=== PATIENT | female | born 1950 | race Caucasian/White ===

== ENCOUNTER 2016-09-02 16:31 | Inpatient (IN) | payer OTHER ==
[~2016-09-02] VITALS: Ht 158.8 cm; Wt 64.4 kg
[~2016-09-02 16:31] MED LIST: AZIT1PAC7 PO; IBUP-1060 PO; LISI1TAB5 PO; METO50TA2 PO; OXYC-323 PO; SIMV40TA3 PO; TIZA4TAB PO
[2016-09-02 17:00] VITALS: BP_SYST 140; BP_DIAS 83; BP_DIAS 85
[2016-09-02] MEDS ORDERED: ACETAMINOPHEN 325 MG TABLET. PO ONE (17:45)
[2016-09-02] MEDS ORDERED: IBUPROFEN 600 MG TABLET. PO ONE (17:45)
--- NOTE | 2016-09-02 18:43 | RAD ---
PROCEDURE CT head without contrast. HISTORY Increasing right-sided weakness for [address] head was obtained. One or more of the following individualized dose reduction techniques were utilized for this exam: 1. Automated exposure control. 2. Adjustment of the mA and/or kV according to patient's size. 3. Use of iterative reconstruction technique. COMPARISON June 25, 2016. FINDINGS Large stable infarct involving the left frontal lobe and left basal ganglia and left insula is again noted. This also likely extends into the thalamus. It has similar appearance to prior. No new infarct is identified. There is no acute intracranial hemorrhage or extra-axial fluid collection. There is brain parenchymal volume loss with ex vacuo dilation of the left lateral ventricle. There is no mass effect or midline shift. There are vascular calcifications. The paranasal sinuses and mastoid air cells are clear. IMPRESSION Stable large infarct mainly involving the frontal lobe and basal ganglia. No evidence of an acute infarct. Electronically signed by: Ruben Genao MD (Sep 02, 2016 18:41:45)
[2016-09-02 19:00] VITALS: BP 105/58
[2016-09-02] MEDS ORDERED: IBUPROFEN 400 MG TABLET. PO PRN (20:45)
[2016-09-02] MEDS ORDERED: ACETAMINOPHEN 325 MG TABLET. PO PRN (20:45)
[2016-09-02] MEDS: METOPROLOL TART IMMED RELEASE 50 MG TABLET PO SCH (21:00)
[2016-09-02] MEDS ORDERED: SIMVASTATIN 40 MG TABLET. PO SCH (21:00)
[2016-09-02] MEDS ORDERED: tiZANidine 4 MG TABLET. PO SCH ×2 (21:00→21:15)
[2016-09-02 21:48] LABS: ALBUMIN 3.3 g/dL (3.4-5.0); ALBUMIN/GLOBULIN RATIO 1.1 (1.0-1.7); CALCIUM 8.8 mg/dL (8.5-10.1); CREATININE 2.1 mg/dL (0.6-1.0); GFR 23.4; POTASSIUM 3.7 mmol/L (3.5-5.1); TOTAL BILIRUBIN 0.5 mg/dL (0.2-1.0); TOTAL PROTEIN 6.3 g/dL (6.4-8.2)
[2016-09-02 23:00] VITALS: BP 128/55
--- NOTE | 2016-09-03 02:00 | HP ---
ADMIT DATE: 09/02/2016 HISTORY OF PRESENT ILLNESS: This is a 66-year-old white female who came into the office complaining of weakness of the right arm. She has sustained a stroke in the right arm. She has had difficulty with her right arm, but she believes she was able to do more. She was able to pickle pumper an object. She is now not able to pickle pumper an object. When I asked her to pickle pumper a pen, her whole hand spread across the pen and she could not bend her fingers to pick it up. She does not feed herself with her right arm. She feeds herself with her left arm. She continues to drive with her left hand. She signs with her left hand. Thus, she does not use her right arm for any useful purpose, Since the stroke, she thinks her right arm is much weaker than before. She also has had dysarthria. She feels it is a little worse. I could not discern that. She has had weakness of her right leg, but she has always been able to walk normal. She does not use any assistive device after her rehab in [place] after her stroke in 2010. She even was working at [employer]. 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 She is really concerned about this increased weakness in the right arm. She was concerned that she has had another stroke and is very worried about it. She lives alone at home. Her family lives in [place]. She had been to [place] for a few days in June. Since then, she has come home and lives alone and does all her grocery shopping by herself. She does not work anymore. She drives to various places on her own. She drove up to the office. She did not think there was anything unusual with that because she uses her left arm. PAST MEDICAL HISTORY: Very significant. In 1991, she underwent a splenectomy for hereditary spherocytosis. Her mother had also had a splenectomy. In 2001, she sustained an acute inferior wall myocardial infarction and had a stent placed. 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 Thereafter, she underwent open heart surgery. I do not believe she went back to work after the [facility] She was well enough to do so, but since she continued to smoke at that time, the [employer] wanted her to have her evaluated to be able to work under the cabin pressures whilein flight. She underwent ABG. The pO2 was 79 at sea level. [employer] believed that if she had a pO2 of 79 at sea level, it would probably drop to a pO2 of 50 at the cabin pressure while in flight. She thus could not go back to work. I saw her in the office on 08/13/2010. She complained of having episodes of dysphasia. I wanted her to have carotid Dopplers. She did not have insurance at that time and she did not want to spend money doing it. Unfortunately, on 09/04/2010, she developed right-sided stroke. This occurred at night. She was living with her niece. She woke up and, wandered out. Her niece found her and found that she had had a stroke. The ambulance was called and she was taken to [facility]. There, they found that there was a occlusion of the middle cerebral artery. There was also a total occlusion of the left internal carotid artery. An experimental laser treatment was carried out. This is because she was out of the window for thrombolysis. It had no affect and she continued to have the deficits as she had. She then went to rehabilitation. The deficits were severe dysarthria, and her dysarthria improved with speech therapy. Severe weakness of the right hand, which did not improve much. Weakness of the right leg, which improved significantly to the point that she was able to walk with no assistance. She then saw a neurologist, Dr. Rory Cha in 08/2010 about 3 months after the stroke. At that time, she had a seizure. She felt that her right arm had become weaker yet. Dr. Cha placed her on Plavix and I do not know when she discontinued it. He also placed her on Keppra, but then when he saw her in November , he took her off the Keppra. I believe she had one other visit with him in 10/2010 for again increased weakness of the right arm and Dr. Cha at that time thought it could be due to depression and talked to her about antidepressants, but there is no record that she was placed on one. She did see me in 2011 for chest pain. A cardiac catheterization was performed on 03/09/2012. The MANN to the LAD was patent. The MANN was a very small vessel. When it was engaged, the MANN was totally occluded and there was no flow and she went into V-fib and was shocked out of it. The SVG to the diagonal branch was patent. SVG to the right coronary artery and the posterior descending branch was patent. At that time, she underwent carotid Doppler The left internal carotid artery was totally occluded. The right internal carotid artery had a 50-70% obstruction. She was seen in consultation by Dr. Guzman who felt at that time that the risks of doing the surgery outweighed the benefits, but that was back in 2011. She had a hospitalization in 06/2016. The right internal carotid artery again showed a 50-69% obstruction. She was seen by Dr. Garcia for headaches. He placed her on tizanidine. I am not sure whether the patient is still taking it. She said that she had tried to get in touch with Dr. Garcia but dis not have his number. She did not call the office either. Her last myocardial perfusion study was done in 06/2016 when there was a mixed perfusion defect in the lateral wall. She had no symptoms at that time and we did not subject her to further investigations. She had stopped taking her statins. Her HDL cholesterol has been high all along. Unfortunately, she had no insurance, but since she turned 63, she does have Medicare. In 06/2016, her LDL cholesterol was elevated to 158, which was still better than 200, which was some years ago. She continues to smoke at the present time. MEDICATIONS: Her present medications are listed as: 1. Aspirin 81 mg a day. 2. Metoprolol tartrate 50 mg 3 times a day. 3. Lisinopril/hydrochlorothiazide 20/12.5 once a day. 4. Pantoprazole 20 mg a day. 5. Ibuprofen 200 mg 4 times a day for headaches. 6. Lipitor 20 mg a day. 7. She was not at all sure whether she is taking the tizanidine or not. PAST MEDICAL HISTORY: 1. Splenectomy. 2. Open heart surgery. 3. Permanent pacemaker. The pacemaker has been checked recently. FAMILY HISTORY: Her mother had coronary artery disease. She also had had hereditary spherocytosis and had had splenectomy done. She had diabetes. PHYSICAL EXAMINATION: GENERAL: She was alert, awake. Her speech was very dysarthric. She had difficulty in getting certain words out, but could easily recognize the right word that she wanted to say. She was very slow. I did not see a difference in her speech as I have seen her before. VITAL SIGNS: She was afebrile. The blood pressure was 124/88, oxygen saturation was 97% on room air. The weight was 142 pounds, which has been stable. LUNGS: Clear. HEART: The heart sounds are normal with no murmur or gallop. ABDOMEN: Soft. EXTREMITIES: There is no edema of the legs. NEUROLOGIC: She had a right facial droop. She had weakness of the right arm and right elbow. 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 Her hand would simply spread out and she would be unable to bend her fingers and pickle pumper an object. There was decreased strength in the right leg, She would be able to get up and walk with a normal gait. IMPRESSION AND PLAN: 1. Right-sided cerebrovascular accident in 2010 with the patient stating that she has had further weakness of her right arm and is concerned that she might have had another stroke. Plavix that was initiated by a neurologist in 2010 has not been continued by her. 2. Severe headaches, for the last 1 year, but she says it has been worse in the last 2 weeks. 3. Hypertension, under control. 4. Dyslipidemia. 5. Coronary artery disease with no symptoms of chest pain with limited activity. 6. Dyslipidemia. 7. Hereditary spherocytosis status post splenectomy. 8. Carotid vascular disease with total occlusion of the left internal carotid artery and 50-70% obstruction of the right internal carotid artery, no symptoms on the left side. 9.Chronic kidney disease This patient lives alone and provides her own transportation. She has nobody to drive her around. She came in with 4 days of increased weakness of the right arm and 2 weeks of headaches. She said she was unable to contact her neurologist. She needs a CT scan and consultation with a neurologist. She also needs to have her right carotid artery followed for the moderate obstruction of 50-70% since that is the only artery that is patent and the left internal carotid artery totally occluded. She was thus being hospitalized for immediate attention in this patient who is noncompliant and has limited access to care. Also, I would like Dr. Garcia's opinion as to whether she should go back on the Plavix. I am not sure of her financial situation at this time. Dr. Cha, her previous neurologist, had recommended that she be placed on Plavix and somewhere along the line, she has discontinued it. Also, I would like Dr. Garcia's advice regarding treatment of her headache. She already has renal dysfunction with a creatinine of 1.67 when checked last and continued use of high dose of ibuprofen would only worsen her kidney failure. DOMENICA COURTNEY MD DR: BRITTNEY/kaveh JOB#: [id number] / [id number] GRACIE
[2016-09-03 03:00] VITALS: BP 108/63
[2016-09-03 05:12] LABS: BASO # 0.1 x10^3/uL (0.0-0.2); BASO % 1 % (0-3); EOS % 9 % (0-3); HEMATOCRIT 36.6 % (36.0-47.0); HEMOGLOBIN 13.4 g/dL (12.0-15.5); LYMPH # 6.5 x10^3/uL (1.0-4.8); LYMPH % 60 % (24-48); MEAN CORPUSCULAR HEMOGLOBIN 34 pg (25-35); MEAN CORPUSCULAR HGB CONC 37 g/dL (31-37); MEAN CORPUSCULAR VOLUME 93 fL (79-100); MONO % 8 % (0-9); NEUT % 22 % (31-73); PLATELET COUNT 216 x10^3/uL (140-400); RED BLOOD COUNT 3.94 x10^6/uL (3.50-5.40); RED CELL DISTRIBUTION WIDTH 14.5 % (11.5-14.5)
[2016-09-03 05:56] LABS: CHOLESTEROL/HDL RATIO 7.6
[2016-09-03 06:55] VITALS: BP 117/65
--- NOTE | 2016-09-03 07:44 | EKG ---
[facility] [address] [place] [address] Test Date: 2016-09-03 Test Time: 07:42:40 Pat Name: DORYS GURROLA Department: Room: 648 1 Gender: F Head Paper Tester: MICHELLE : 1950 Requested By: DOMENICA COURTNEY Order Number: [id number] Reading MD: Measurements Intervals [place] Rate: 61 P: 0 VA: 216 QRS: 45 QRSD: 74 T: 21 QT: 396 QTc: 400 Interpretive Statements SINUS RHYTHM NO SPECIFIC ECG ABNORMALITIES RI6.01 Compared to ECG 03/08/2012 03:30:53 No significant changes
[2016-09-03] MEDS ORDERED: ASPIRIN 81 MG TAB.CHEW PO SCH ×2 (08:00→09:00)
--- NOTE | 2016-09-03 08:44 | RAD ---
Indication right arm weakness. Speech difficulty. Hypertension. Grayscale color Doppler and spectral imaging was performed. Examination was targeted to the carotid bifurcations. Note is made of a previous examination June 24, 2016. On the right there is diffuse intimal thickening and some diffuse calcification. The common carotid waveform and velocities are somewhat elevated suggesting possible stenosis in the common carotid. There is elevated peak systolic velocity in the external carotid consistent with incidental stenosis associated with this vessel. There are elevated peak systolic and diastolic velocities in the internal carotid. These values are approximately 240 and 63 cm/s respectively. Findings are compatible with stenosis in the 70% range. The vertebral is patent and demonstrates normal directional flow. On the left there is also intimal thickening and diffuse plaquing. The common carotid waveform and velocities are normal. There is an elevated peak systolic velocity in the external carotid consistent with incidental stenosis in this vessel. Similar to the previous exam no flow is seen in the internal carotid just after the bifurcation. The vertebral is patent and demonstrates normal directional flow. IMPRESSION: Moderately extensive intimal thickening and plaquing involving both carotid bifurcations. No flow seen in the left internal carotid, just after the bifurcation, similar to the previous exam suggesting occlusion. Hemodynamically significant stenosis involving the right internal carotid estimated at approximately 70%. Note: Stenosis calculations for CT, MR and conventional angiography are based upon determination of the distal ICA diameter in accordance with the NASCET methodology. Stenosis calculations for doppler studies are derived from validated velocity criteria which are known to correlate with NASCET methodology of determining stenosis.
[2016-09-03] MEDS ORDERED: LISINOPRIL 20 MG TABLET PO SCH (09:00)
[2016-09-03] MEDS ORDERED: HYDROCHLOROTHIAZIDE 12.5 MG CAPSULE. PO SCH (09:00)
--- NOTE | 2016-09-03 09:00 | RAD ---
Indication headaches. Right arm pain. Possible CVA. Protocol study. PA and lateral views of the chest were obtained. Comparison is made to a study June 23, 2016. Postoperative changes are noted as well as a bipolar cardiac pacing device. There is no congestive heart failure. A consolidated pneumonia is not seen. There is slight blunting of the left costophrenic angle likely reflecting scar. Significant pleural fluid in either lung is not seen. IMPRESSION: No acute or focal process seen in the chest
[2016-09-03] MEDS: METOPROLOL TART IMMED RELEASE 50 MG TABLET PO SCH ×2 (09:05→13:32)
[2016-09-03 09:29] LABS: % BASOS 1 % (0-3); % EOS 8 % (0-5)
[2016-09-03 09:30] LABS: PLT ESTIMATE ADEQUATE (ADEQUATE)
[2016-09-03 10:52] VITALS: BP 108/63
--- NOTE | 2016-09-03 11:57 | PDOC2 ---
NEUROLOGY CONSULT Date of Admission Date of Admission DATE: 09/03/16 TIME: 11:45 Reason for Consult Reason for Consult: Increased right arm weakness following stroke Referring Physician Referring Physician: Dr. Zhang Source Source: Chart review, Patient History of Present Illness History of Present Illness The patient is a 66-year-old right-handed female who had a stroke 6 years ago treated at [facility]. She had a aphasia and right hip repair assist but made a very good recovery, even able to work, drive, and take care of things on her own, living alone. Over the last few weeks she has noticed increased right arm weakness. Dr. Zhang decided that she should be admitted. The patient does have a history of seizure, but none in the past 5 years. There is no history of head injury. She was diagnosed with left carotid occlusion at the time of her stroke. I just saw her 2 months ago for headaches at which time CT scan of the head, carotid Dopplers, and sedimentation rate were negative. I started her on ties and a need for tension headaches but she does not recall if it helped. She denies headaches today. Past Medical History Cardiovascular: CAD, Hyperlipidemia Heme/Onc: Other (hereditary spherocytosis) Past Surgical History Past Surgical History: Pacemaker, CABG, Other (splenectomy for the spherocytosis, coronary stent) Family History Family History: Other (hereditary spherocytosis) Social History Social History Single, smokes one fourth pack of cigarettes per day, rare alcohol, lives on her own Current Medications Current Medications Current Medications Acetaminophen (Tylenol) 650 mg 1X ONCE PO Last administered on 09/02/16 18:02 ; Start 09/02/16 at 17:45; Stop 09/02/16 at 17:49; Status DC Ibuprofen (Motrin) 600 mg 1X ONCE PO Last administered on 09/02/16 18:02; Start 09/02/16 at 17:45; Stop 09/02/16 at 17:49; Status DC Metoprolol Tartrate (Lopressor) 50 mg TID PO Last administered on 09/03/16 09: 05; Start 09/02/16 at 21:00 Simvastatin (Zocor) 40 mg QHS PO ; Start 09/02/16 at 21:00 Lisinopril (Prinivil) 20 mg DAILY PO Last administered on 09/03/16 09:04; Start 09/03/16 at 09:00 Tizanidine HCl (Zanaflex) 4 mg QHS PO ; Start 09/02/16 at 21:00; Stop 09/02/16 at 21:15; Status DC Hydrochlorothiazide (Microzide) 12.5 mg DAILY PO Last administered on 09:05; Start 09/03/16 at 09:00 Aspirin (Children'S Aspirin) 81 mg DAILYWBKFT PO ; Start 09/03/16 at 08:00; Stop 09/03/16 at 08:59; Status DC Acetaminophen (Tylenol) 650 mg PRN Q6HRS PRN PO MILD PAIN / TEMP Last administered on 09/03/16 11:14; Start 09/02/16 at 20:45 Ibuprofen (Motrin) 400 mg PRN Q6HRS PRN PO INFLAMMATION; Start 09/02/16 at 20: 45 Tizanidine HCl (Zanaflex) 2 mg QHS PO ; Start 09/02/16 at 21:15 Aspirin (Children'S Aspirin) 324 mg DAILYWBKFT PO Last administered on 09:04; Start 09/03/16 at 09:00 Active Scripts Active Simvastatin 40 Mg Tablet 1 Tab PO QHS Tizanidine Hcl 4 Mg Tablet 0.5 Tab PO QHS Reported Lisinopril-Hctz 20-12.5 Mg Tab (Lisinopril/Hydrochlorothiazide) 1 Each Tablet 1 Tab PO DAILY Metoprolol Tartrate 50 Mg Tablet 50 Mg PO TID Allergies Allergies: Coded Allergies: Penicillins (Verified Allergy, Intermediate, 06/23/16) Sulfa (Sulfonamide Antibiotics) (Verified Allergy, Intermediate, 06/23/16) codeine (Verified Allergy, Intermediate, 06/23/16) erythromycin base (Verified Allergy, Unknown, 09/02/16) ROS Review of System Patient denies fevers, chills, weight loss, dyspnea, angina, abdominal pain, change in bowels, or dysuria. 14 point review of systems is negative. Physical Exam Physical Examination PHYSICAL EXAMINATION: Vital signs: see above. General appearance is normal and in no acute distress. HEENT: Normocephalic and nontraumatic. Eyes, nose, ears, and throat are unremarkable. Neck is supple. No lymphadenopathy. No bruits are heard over the carotid artery. No crepitus. NEUROLOGIC: Mental Status Examination: Alert. Oriented to time, place, and person. Mild expressive aphasia. Pupils are equal round and reactive to light and accommodation. Funduscopic exam: No papilledema. Extraocular movements are intact. Visual field exam shows no defect on the direct confrontation. Mild right central facial weakness. Uvula in the midline and the soft palate elevated symmetrically. No deviation of the tongue to any direction. Gross hearing is normal. Shoulder shrug normal. Muscle tone is normal. Muscle strength is 4/5 on the right, 5/5 on the left. Deep tendon reflexes are 2+ all around. Plantar reflex is with flexion response bilaterally. [id number]-[id number] test performance is accurate. Alternative movements are accurate. Gait not tested. Sensory exam shows no deficits. No cerebellar signs are elicited. Vitals VITALS Vital Signs Date Time Temp Pulse Resp B/P Pulse Ox O2 Delivery O2 Flow Rate FiO2 09/03/16 10:52 97.7 62 17 108/63 96 Room Air 97.7 Labs Labs Laboratory Tests Test 09/02/16 21:25 09/03/16 04:25 Sodium Level 140mmol/L (136-145) Potassium Level 3.7mmol/L (3.5-5.1) Chloride Level 105mmol/L (98-107) Carbon Dioxide Level 26mmol/L (21-32) Anion Gap 9 (6-14) Blood Urea Nitrogen 35mg/dL (7-20) Creatinine 2.1mg/dL (0.6-1.0) Estimated GFR (Cockcroft-Gault) 23.4 BUN/Creatinine Ratio 17 (6-20) Glucose Level 93mg/dL (70-99) Calcium Level 8.8mg/dL (8.5-10.1) Total Bilirubin 0.5mg/dL (0.2-1.0) Aspartate Amino Transf (AST/SGOT) 14U/L (15-37) Alanine Aminotransferase (ALT/SGPT) 16U/L (14-59) Alkaline Phosphatase 51U/L (46-116) Total Protein 6.3g/dL (6.4-8.2) Albumin 3.3g/dL (3.4-5.0) Albumin/Globulin Ratio 1.1 (1.0-1.7) White Blood Count 11.0x10^3/uL (4.0-11.0) Red Blood Count 3.94x10^6/uL (3.50-5.40) Hemoglobin 13.4g/dL (12.0-15.5) Hematocrit 36.6% (36.0-47.0) Mean Corpuscular Volume 93fL (79-100) Mean Corpuscular Hemoglobin 34pg (25-35) Mean Corpuscular Hemoglobin Concent 37g/dL (31-37) Red Cell Distribution Width 14.5% (11.5-14.5) Platelet Count 216x10^3/uL (140-400) Neutrophils (%) (Auto) 22% (31-73) Lymphocytes (%) (Auto) 60% (24-48) Monocytes (%) (Auto) 8% (0-9) Eosinophils (%) (Auto) 9% (0-3) Basophils (%) (Auto) 1% (0-3) Neutrophils # (Auto) 2.4x10^3uL (1.8-7.7) Lymphocytes # (Auto) 6.5x10^3/uL (1.0-4.8) Monocytes # (Auto) 0.9x10^3/uL (0.0-1.1) Eosinophils # (Auto) 1.0x10^3/uL (0.0-0.7) Basophils # (Auto) 0.1x10^3/uL (0.0-0.2) Segmented Neutrophils % 26% (35-66) Band Neutrophils % 1% (0-9) Lymphocytes % 51% (24-48) Atypical Lymphocytes % (Manual) 6% (0-0) Monocytes % 7% (0-10) Eosinophils % 8% (0-5) Basophils % 1% (0-3) Platelet Estimate Adequate (ADEQUATE) Erythrocyte Sedimentation Rate 10 (0-25) Triglycerides Level 236mg/dL (0-150) Cholesterol Level 265mg/dL (0-200) LDL Cholesterol, Calculated 183mg/dL (0-100) VLDL Cholesterol, Calculated 47mg/dL (0-40) HDL Cholesterol 35mg/dL (40-60) Cholesterol/HDL Ratio 7.6 Thyroid Stimulating Hormone (TSH) 1.915uIU/mL (0.358-3.74) Laboratory Tests Test 09/02/16 21:25 09/03/16 04:25 Sodium Level 140mmol/L (136-145) Potassium Level 3.7mmol/L (3.5-5.1) Chloride Level 105mmol/L (98-107) Carbon Dioxide Level 26mmol/L (21-32) Anion Gap 9 (6-14) Blood Urea Nitrogen 35mg/dL (7-20) Creatinine 2.1mg/dL (0.6-1.0) Estimated GFR (Cockcroft-Gault) 23.4 BUN/Creatinine Ratio 17 (6-20) Glucose Level 93mg/dL (70-99) Calcium Level 8.8mg/dL (8.5-10.1) Total Bilirubin 0.5mg/dL (0.2-1.0) Aspartate Amino Transf (AST/SGOT) 14U/L (15-37) Alanine Aminotransferase (ALT/SGPT) 16U/L (14-59) Alkaline Phosphatase 51U/L (46-116) Total Protein 6.3g/dL (6.4-8.2) Albumin 3.3g/dL (3.4-5.0) Albumin/Globulin Ratio 1.1 (1.0-1.7) White Blood Count 11.0x10^3/uL (4.0-11.0) Red Blood Count 3.94x10^6/uL (3.50-5.40) Hemoglobin 13.4g/dL (12.0-15.5) Hematocrit 36.6% (36.0-47.0) Mean Corpuscular Volume 93fL (79-100) Mean Corpuscular Hemoglobin 34pg (25-35) Mean Corpuscular Hemoglobin Concent 37g/dL (31-37) Red Cell Distribution Width 14.5% (11.5-14.5) Platelet Count 216x10^3/uL (140-400) Neutrophils (%) (Auto) 22% (31-73) Lymphocytes (%) (Auto) 60% (24-48) Monocytes (%) (Auto) 8% (0-9) Eosinophils (%) (Auto) 9% (0-3) Basophils (%) (Auto) 1% (0-3) Neutrophils # (Auto) 2.4x10^3uL (1.8-7.7) Lymphocytes # (Auto) 6.5x10^3/uL (1.0-4.8) Monocytes # (Auto) 0.9x10^3/uL (0.0-1.1) Eosinophils # (Auto) 1.0x10^3/uL (0.0-0.7) Basophils # (Auto) 0.1x10^3/uL (0.0-0.2) Segmented Neutrophils % 26% (35-66) Band Neutrophils % 1% (0-9) Lymphocytes % 51% (24-48) Atypical Lymphocytes % (Manual) 6% (0-0) Monocytes % 7% (0-10) Eosinophils % 8% (0-5) Basophils % 1% (0-3) Platelet Estimate Adequate (ADEQUATE) Erythrocyte Sedimentation Rate 10 (0-25) Triglycerides Level 236mg/dL (0-150) Cholesterol Level 265mg/dL (0-200) LDL Cholesterol, Calculated 183mg/dL (0-100) VLDL Cholesterol, Calculated 47mg/dL (0-40) HDL Cholesterol 35mg/dL (40-60) Cholesterol/HDL Ratio 7.6 Thyroid Stimulating Hormone (TSH) 1.915uIU/mL (0.358-3.74) Images Images Carotids: Moderately extensive intimal thickening and plaquing involving both carotid bifurcations. No flow seen in the left internal carotid, just after the bifurcation, similar to the previous exam suggesting occlusion. Hemodynamically significant stenosis involving the right internal carotid estimated at approximately 70%. CT head: Large stable infarct involving the left frontal lobe and left basal ganglia and left insula is again noted. This also likely extends into the thalamus. It has similar appearance to prior. No new infarct is identified. There is no acute intracranial hemorrhage or extra-axial fluid collection. There is brain parenchymal volume loss with ex vacuo dilation of the left lateral ventricle. There is no mass effect or midline shift. There are vascular calcifications. The paranasal sinuses and mastoid air cells are clear. IMPRESSION Stable large infarct mainly involving the frontal lobe and basal ganglia. No evidence of an acute infarct. Assessment/Plan Assessment/Plan Impression: Right hemiparesis and aphasia following stroke, no evidence of progression since the scan of just 2 months ago. I do not detect any difference on exam Likewise, the patient had carotid Dopplers just 2 months ago repeated again this time. 2 months ago the radiologist called 50-69% right carotid stenosis, now he is calling 70% stenosis. The left carotid is occluded chronically. Tension headaches, not a problem today. Recommendations: Vascular surgery opinion especially in light of the fact that the left carotid is occluded Rehabilitation modalities Continue aspirin and statin Okay for discharge in the next 24 hours from the neurological perspective. Follow-up with neurology as needed. Thank you for letting me help with the patient's care. SALVADOR OSMAN MD Sep 03, 2016 11:57
[2016-09-03] MEDS ORDERED: FLUOXETINE HCL 20 MG CAPSULE PO SCH (12:00)
[2016-09-03 15:00] VITALS: BP 100/59
--- NOTE | 2016-09-03 17:29 | PDOC2 ---
CONSULT Date of Consult Date of Consult DATE: 09/03/16 TIME: 17:06 Reason for Consult Reason for Consult: Right carotid stenosis, asymptomatic with left internal carotid occlusion. Referring Physician Referring Physician: Dr. Dexter Identification/Chief Complaint Chief Complaint Right arm weakness Source Source: Patient History of Present Illness Reason for Visit: Ms. Mckinnon is a 66 y/o female with HTN, HLD, CAD s/p CABG, Pacemaker s/p right-sided (with residual RUE weakness) stroke 6 years ago w/ L ICA occlusion that was admitted to [facility] for evaluation of right arm weakness. She states that the right arm has been weaker over the past several weeks, but she did have residual weakness after of the arm after the stroke. She denies any chest pain. She denies any claudication, rest pain, or ulcers of the legs. Past Medical History Cardiovascular: CAD, Hyperlipidemia Pulmonary: COPD CENTRAL NERVOUS SYSTEM: CVA GI: GERD Heme/Onc: Other (hereditary spherocytosis) Past Surgical History Past Surgical History: Pacemaker, CABG, Other (splenectomy for the spherocytosis, coronary stent) Current Problem List Problem List Problems Medical Problems: (1) Carotid artery occlusion Status: Acute Current Medications Current Medications Current Medications Acetaminophen (Tylenol) 650 mg 1X ONCE PO Last administered on 09/02/16 18:02 ; Start 09/02/16 at 17:45; Stop 09/02/16 at 17:49; Status DC Ibuprofen (Motrin) 600 mg 1X ONCE PO Last administered on 09/02/16 18:02; Start 09/02/16 at 17:45; Stop 09/02/16 at 17:49; Status DC Metoprolol Tartrate (Lopressor) 50 mg TID PO Last administered on 09/03/16 13: 32; Start 09/02/16 at 21:00 Simvastatin (Zocor) 40 mg QHS PO ; Start 09/02/16 at 21:00 Lisinopril (Prinivil) 20 mg DAILY PO Last administered on 09/03/16 09:04; Start 09/03/16 at 09:00 Tizanidine HCl (Zanaflex) 4 mg QHS PO ; Start 09/02/16 at 21:00; Stop 09/02/16 at 21:15; Status DC Hydrochlorothiazide (Microzide) 12.5 mg DAILY PO Last administered on 09:05; Start 09/03/16 at 09:00 Aspirin (Children'S Aspirin) 81 mg DAILYWBKFT PO ; Start 09/03/16 at 08:00; Stop 09/03/16 at 08:59; Status DC Acetaminophen (Tylenol) 650 mg PRN Q6HRS PRN PO MILD PAIN / TEMP Last administered on 09/03/16 11:14; Start 09/02/16 at 20:45 Ibuprofen (Motrin) 400 mg PRN Q6HRS PRN PO INFLAMMATION; Start 09/02/16 at 20: 45 Tizanidine HCl (Zanaflex) 2 mg QHS PO ; Start 09/02/16 at 21:15 Aspirin (Children'S Aspirin) 324 mg DAILYWBKFT PO Last administered on 09:04; Start 09/03/16 at 09:00 Fluoxetine HCl (Prozac) 20 mg DAILY PO Last administered on 09/03/16 13:32; Start 09/03/16 at 12:00 Active Scripts Active Simvastatin 40 Mg Tablet 1 Tab PO QHS Tizanidine Hcl 4 Mg Tablet 0.5 Tab PO QHS Reported Lisinopril-Hctz 20-12.5 Mg Tab (Lisinopril/Hydrochlorothiazide) 1 Each Tablet 1 Tab PO DAILY Metoprolol Tartrate 50 Mg Tablet 50 Mg PO TID Allergies Allergies: Coded Allergies: Penicillins (Verified Allergy, Intermediate, 06/23/16) Sulfa (Sulfonamide Antibiotics) (Verified Allergy, Intermediate, 06/23/16) codeine (Verified Allergy, Intermediate, 06/23/16) erythromycin base (Verified Allergy, Unknown, 09/02/16) Physical Exam General: Alert, Oriented X3 HEENT: Atraumatic, PERRLA Heart: Regular rate, Normal S1, Normal S2, Other (palpable radial b/l, palpable femoral b/l, palpable popliteal b/l, 1+ pulse DP/PT b/l) Abdomen: Normal bowel sounds, Soft, No tenderness Extremities: No cyanosis, No edema Skin: No rashes, No breakdown Neuro: Normal gait, Sensation intact, Other (RUE 4/5, LUE 5/5, lower extremities 5/5 on strength) Psych/Mental Status: Mental status NL, Mood NL MUSCULOSKELETAL: No joint tenderness, No swelling Vitals VITALS Vital Signs Date Time Temp Pulse Resp B/P Pulse Ox O2 Delivery O2 Flow Rate FiO2 09/03/16 15:00 97.7 60 17 100/59 95 Room Air 97.7 Labs Labs Laboratory Tests Test 09/02/16 21:25 09/03/16 04:25 Sodium Level 140mmol/L (136-145) Potassium Level 3.7mmol/L (3.5-5.1) Chloride Level 105mmol/L (98-107) Carbon Dioxide Level 26mmol/L (21-32) Anion Gap 9 (6-14) Blood Urea Nitrogen 35mg/dL (7-20) Creatinine 2.1mg/dL (0.6-1.0) Estimated GFR (Cockcroft-Gault) 23.4 BUN/Creatinine Ratio 17 (6-20) Glucose Level 93mg/dL (70-99) Calcium Level 8.8mg/dL (8.5-10.1) Total Bilirubin 0.5mg/dL (0.2-1.0) Aspartate Amino Transf (AST/SGOT) 14U/L (15-37) Alanine Aminotransferase (ALT/SGPT) 16U/L (14-59) Alkaline Phosphatase 51U/L (46-116) Total Protein 6.3g/dL (6.4-8.2) Albumin 3.3g/dL (3.4-5.0) Albumin/Globulin Ratio 1.1 (1.0-1.7) White Blood Count 11.0x10^3/uL (4.0-11.0) Red Blood Count 3.94x10^6/uL (3.50-5.40) Hemoglobin 13.4g/dL (12.0-15.5) Hematocrit 36.6% (36.0-47.0) Mean Corpuscular Volume 93fL (79-100) Mean Corpuscular Hemoglobin 34pg (25-35) Mean Corpuscular Hemoglobin Concent 37g/dL (31-37) Red Cell Distribution Width 14.5% (11.5-14.5) Platelet Count 216x10^3/uL (140-400) Neutrophils (%) (Auto) 22% (31-73) Lymphocytes (%) (Auto) 60% (24-48) Monocytes (%) (Auto) 8% (0-9) Eosinophils (%) (Auto) 9% (0-3) Basophils (%) (Auto) 1% (0-3) Neutrophils # (Auto) 2.4x10^3uL (1.8-7.7) Lymphocytes # (Auto) 6.5x10^3/uL (1.0-4.8) Monocytes # (Auto) 0.9x10^3/uL (0.0-1.1) Eosinophils # (Auto) 1.0x10^3/uL (0.0-0.7) Basophils # (Auto) 0.1x10^3/uL (0.0-0.2) Segmented Neutrophils % 26% (35-66) Band Neutrophils % 1% (0-9) Lymphocytes % 51% (24-48) Atypical Lymphocytes % (Manual) 6% (0-0) Monocytes % 7% (0-10) Eosinophils % 8% (0-5) Basophils % 1% (0-3) Platelet Estimate Adequate (ADEQUATE) Erythrocyte Sedimentation Rate 10 (0-25) Triglycerides Level 236mg/dL (0-150) Cholesterol Level 265mg/dL (0-200) LDL Cholesterol, Calculated 183mg/dL (0-100) VLDL Cholesterol, Calculated 47mg/dL (0-40) HDL Cholesterol 35mg/dL (40-60) Cholesterol/HDL Ratio 7.6 Thyroid Stimulating Hormone (TSH) 1.915uIU/mL (0.358-3.74) Laboratory Tests Test 09/02/16 21:25 09/03/16 04:25 Sodium Level 140mmol/L (136-145) Potassium Level 3.7mmol/L (3.5-5.1) Chloride Level 105mmol/L (98-107) Carbon Dioxide Level 26mmol/L (21-32) Anion Gap 9 (6-14) Blood Urea Nitrogen 35mg/dL (7-20) Creatinine 2.1mg/dL (0.6-1.0) Estimated GFR (Cockcroft-Gault) 23.4 BUN/Creatinine Ratio 17 (6-20) Glucose Level 93mg/dL (70-99) Calcium Level 8.8mg/dL (8.5-10.1) Total Bilirubin 0.5mg/dL (0.2-1.0) Aspartate Amino Transf (AST/SGOT) 14U/L (15-37) Alanine Aminotransferase (ALT/SGPT) 16U/L (14-59) Alkaline Phosphatase 51U/L (46-116) Total Protein 6.3g/dL (6.4-8.2) Albumin 3.3g/dL (3.4-5.0) Albumin/Globulin Ratio 1.1 (1.0-1.7) White Blood Count 11.0x10^3/uL (4.0-11.0) Red Blood Count 3.94x10^6/uL (3.50-5.40) Hemoglobin 13.4g/dL (12.0-15.5) Hematocrit 36.6% (36.0-47.0) Mean Corpuscular Volume 93fL (79-100) Mean Corpuscular Hemoglobin 34pg (25-35) Mean Corpuscular Hemoglobin Concent 37g/dL (31-37) Red Cell Distribution Width 14.5% (11.5-14.5) Platelet Count 216x10^3/uL (140-400) Neutrophils (%) (Auto) 22% (31-73) Lymphocytes (%) (Auto) 60% (24-48) Monocytes (%) (Auto) 8% (0-9) Eosinophils (%) (Auto) 9% (0-3) Basophils (%) (Auto) 1% (0-3) Neutrophils # (Auto) 2.4x10^3uL (1.8-7.7) Lymphocytes # (Auto) 6.5x10^3/uL (1.0-4.8) Monocytes # (Auto) 0.9x10^3/uL (0.0-1.1) Eosinophils # (Auto) 1.0x10^3/uL (0.0-0.7) Basophils # (Auto) 0.1x10^3/uL (0.0-0.2) Segmented Neutrophils % 26% (35-66) Band Neutrophils % 1% (0-9) Lymphocytes % 51% (24-48) Atypical Lymphocytes % (Manual) 6% (0-0) Monocytes % 7% (0-10) Eosinophils % 8% (0-5) Basophils % 1% (0-3) Platelet Estimate Adequate (ADEQUATE) Erythrocyte Sedimentation Rate 10 (0-25) Triglycerides Level 236mg/dL (0-150) Cholesterol Level 265mg/dL (0-200) LDL Cholesterol, Calculated 183mg/dL (0-100) VLDL Cholesterol, Calculated 47mg/dL (0-40) HDL Cholesterol 35mg/dL (40-60) Cholesterol/HDL Ratio 7.6 Thyroid Stimulating Hormone (TSH) 1.915uIU/mL (0.358-3.74) Images Images Carotid US 09/03/16 IMPRESSION: Moderately extensive intimal thickening and plaquing involving both carotid bifurcations. No flow seen in the left internal carotid, just after the bifurcation, similar to the previous exam suggesting occlusion. Hemodynamically significant stenosis involving the right internal carotid estimated at approximately 70%. CT Head, noncontrast 09/03/16 IMPRESSION Stable large infarct mainly involving the frontal lobe and basal ganglia. No evidence of an acute infarct. Assessment/Plan Assessment/Plan Impression: 1. Prior right stroke in 2010 w/ residual right-sided weakness and occluded L ICA 2. Asymptomatic R ICA stenosis, ~ 70% 2. HTN 3. headaches 4. Dyslipidemia 5. CKD, creat 2.01 Plan: The carotid ultrasound was reviewed, and progression from a previous carotid ultrasound from 06/2016 with progression of R ICA stenosis from 50-69% to > 70% with no changes in the occluded L ICA. She does not have any stroke symptoms, no left-sided weakness, visual changes, or speech changes. She does have right- sided weakness, but stable left old infarct. Although the velocity is elevated 240/63 the end diastolic is < 100 and her ICA/CCA ratio is 2.0 which is consistent with a stenosis of 70%. Especially in the setting of a contra- lateral occluded ICA, the PSV of vickie R ICA may be higher due to compensation of the occluded L ICA. A CTA of the neck would help clarify the degree of stenosis , however, would not recommend a CTA of [facility] neck with her creatinine at 2.01. Recommend repeat carotid US in 6 months with follow-up with Vascular Surgery, and continue medical therapy with aspirin, lipitor, and BP control. Thank you for the consult. JOHN STUBBS MD Sep 03, 2016 17:29
[2016-09-03] MEDS ORDERED: FLUO20CA8 PO (19:25)
[2016-09-03] MEDS ORDERED: OXYC-323 PO (19:25)
--- NOTE | 2016-09-04 07:17 | DS ---
DATE OF DISCHARGE: 09/03/2016 HOSPITAL COURSE: This is a 66-year-old white female who came into my office complaining of more weakness and inability to do what she was doing before with her right arm. She feared that she may have had another stroke. Since she had had such an incident in the past and her neurologist at that time, Dr. Cha had placed her on Plavix, which she subsequently discontinued, I thought we should immediately hospitalize her and have the neurologist here see her, Dr. Dexter to see what he thinks. Also, she has had a total occlusion of the left internal carotid artery. There has been a 70% obstruction in the left internal carotid artery and we will have this repeated and a neurosurgeon see her. She was seen in consultation by Dr. Dexter who was not impressed by the weakness. The history she gave him was that she has had the right arm weakness for the last several weeks. She had complained to him of headaches in June and he had placed her on tizanidine. The patient did not remember taking any tizanidine. Since the patient could not remember what medications she was taking, we called her pharmacy. The pharmacy said that they had filled 4 prescriptions recently. 1. Pantoprazole. 2. Lisinopril/hydrochlorothiazide. 3. Metoprolol succinate. 4. Tizanidine 4 mg. She had been given a prescription for atorvastatin in June, which she evidently did not fill. Her lab investigations were as follows. Hemoglobin was 13.4, total WBC count 11,000 with 22% neutrophils and 60% lymphocytes. There were 8% monocytes, 9% eosinophils. In June, her white cell count was 10,100 with 48% neutrophils, 37% lymphocytes. Thus, it was not as low. The patient was very anxious to go home and Dr. Dexter had also said that she should go home in 24 hours. She was thus discharged. She will be asked to see her construction lineman as an outpatient. Also, this will be repeated when she comes to the office on 09/18/2016. Her sed rate was 10. The sodium is 140, potassium 3.7, BUN is 35, creatinine is 2.1. The last creatinine in my chart is 1.65. She did admit to taking a lot of Motrin, at least 800 mg a day. This was not with my permission. She was told not to take any more Motrin until rechecked again. The total cholesterol was 265, the triglycerides were 236, the LDL cholesterol was 183 and the HDL cholesterol was 35. The last LDL cholesterol was 165. As stated before, she had been given a prescription for atorvastatin that she failed to fill. The TSH was 1.9. The chest x-ray was normal. The CT scan of the head showed a stable large infarct involving the front lobe and basal ganglia. No evidence of acute infarct. An MRI could not be done because of the presence of the pacemaker. Carotid Doppler was done. The right internal carotid artery was estimated to be 70% obstructed. No flow was seen in the left internal carotid artery because it has been known to be totally occluded. A lengthy conversation was held with the patient. 1. She was asked to stop smoking. 2. She was asked to stop taking the Motrin as it seems to be affecting the kidney. 3. She was admonished to get her atorvastatin prescription and start taking it. 4. She was asked to stick to a low cholesterol diet. 5. She was asked to see me in 2 weeks with her medications so that I know what she is taking and what she is not. Blood will be drawn at that time for CBC and BMP. If the CBC continues to be abnormal, we will refer her to a construction lineman. Her medications will be: 1. Aspirin 81 mg a day. 2. Lisinopril/hydrochlorothiazide 20/12.5 mg a day. 3. Metoprolol tartrate 50 mg a day. 4. Percocet half a tablet q.6 hours p.r.n. for headache that does not seem to be related with tizanidine. Dr. Dexter did not make any specific recommendation, so I believe he wanted us to continue with the tizanidine. I told her not to take the Motrin. I did give her Percocet half a tablet every 6 hours as needed for the headaches and not to drive for 4 hours thereafter. When she sees the neurologist next, she can talk to him about it. I know the neurologistsfrown upon narcotics for headaches. 5. I believe she is depressed with her circumstances. She was given Prozac 20 mg a day. 6. She was asked to continue with the metoprolol tartrate 50 mg 3 times a day. 7. She was given a prescription for atorvastatin. 8. She had been taking pantoprazole. I did not renew that prescription. If she shows symptoms of GERD, then we will put her back on it. She was seen in consultation by Dr. Mckay Jules. He writes the carotid ultrasound was reviewed and progression from her previous carotid ultrasound from 06/2016, with progression of the right internal carotid stenosis from 50-69% to more than 70% with no changes in the occluded internal carotid artery. She does not have any stroke symptoms, no left-sided weakness, visual changes or speech changes. She does have right-sided weakness, but stable left old infarct. Although, the velocity is elevated 240_/63, the end diastolic is less than 100 and her ICA/CCA ratio is 2, which is consistent with a stenosis of 70%. Especially in the setting of a contralateral occluded ICA, the PSV of the right internal carotid artery may be higher due to compensation of the occluded LICA. A CT of the neck would help clarify the degree of stenosis; however, would not recommend a CT of the neck with a creatinine at 2.01. Recommend repeat carotid ultrasound in 6 months with followup with Vascular Surgery and continue medical therapy with aspirin, Lipitor and blood pressure control. This was related to the patient. However, I plan to have her stop the Motrin and repeat her renal functions. It is quite bothersome that she has more than 70% obstruction in the right internal carotid artery with a totally occluded left internal carotid artery. If the creatinine is better, I plan to bring her back in, hydrate her, have a specialty sales consultant see her and proceed with a carotid arteriogram or a CTA, whichever the radiologist feels is more appropriate. Also, at that time, we will have a Hematology consultation. She is a young 66, very vivacious woman who has battled several physical odds and even had been working until recently despite the severe neurological deficits. FINAL DIAGNOSIS 1. 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 Severe right internal carotid artery obstruction with total obstruction of the contralateral carotid artery. 3. Hypertension 4. Dyslipidemia 5. Chronic kidney disease 6, Severe headaches 7. Probable depression 8. Lymphocytosis DOMENICA COURTNEY MD DR: BRITTNEY/kaveh JOB#: [id number] / [id number] GRACIE
== END 2016-09-03 19:34 | disposition home health service (06) | DRG 68 ==
LOC: 6 SOUTH 16:47
PROVIDERS: ADMIT Specialist; ATTEND Specialist
DX: I65.23 Occlusion and stenosis of bilateral carotid arteries (principal); I69.351 Hemiplegia and hemiparesis following cerebral infarction affecting right dominant side; D58.0 Hereditary spherocytosis; D72.820 Lymphocytosis (symptomatic); E78.5 Hyperlipidemia, unspecified; F17.210 Nicotine dependence, cigarettes, uncomplicated; F32.9 Major depressive disorder, single episode, unspecified; G44.209 Tension-type headache, unspecified, not intractable; I12.9 Hypertensive chronic kidney disease with stage 1 through stage 4 chronic kidney disease, or unspecified chronic kidney disease; I25.10 Atherosclerotic heart disease of native coronary artery without angina pectoris; I25.2 Old myocardial infarction; J44.9 Chronic obstructive pulmonary disease, unspecified; K21.9 Gastro-esophageal reflux disease without esophagitis; N18.9 Chronic kidney disease, unspecified; Z79.82 Long term (current) use of aspirin; Z79.899 Other long term (current) drug therapy; Z82.49 Family history of ischemic heart disease and other diseases of the circulatory system; Z83.3 Family history of diabetes mellitus; Z90.81 Acquired absence of spleen; Z91.19 Patient's noncompliance with other medical treatment and regimen; Z95.1 Presence of aortocoronary bypass graft; Z95.5 Presence of coronary angioplasty implant and graft; Z88.6 Allergy status to analgesic agent; Z88.1 Allergy status to other antibiotic agents; Z88.0 Allergy status to penicillin; Z88.2 Allergy status to sulfonamides
CPT/HCPCS: 36415; 70450; 71020; 80053; 80061; 83036; 84443; 85007; 85027; 85651; 93005; 93880; 92523

== ENCOUNTER 2021-10-28 16:35 | Emergency (ER) | payer OTHER ==
[~2021-10-28] VITALS: Ht 160 cm; Wt 63.0 kg
[~2021-10-28 16:35] MED LIST changes: -AZIT1PAC7 PO; +AZIT1PAC9 PO; +FLUO20CA22 PO; +LISI1TAB37 PO; -LISI1TAB5 PO; -METO50TA2 PO; +METO50TA6 PO; -OXYC-323 PO; +OXYC1TAB15 PO; +SIMV40TA18 PO; -SIMV40TA3 PO; +TIZA-75 PO; -TIZA4TAB PO
[2021-10-28 17:05] VITALS: BP 178/63
--- NOTE | 2021-10-28 17:56 | RAD ---
Exam: Right foot 3 views INDICATION: Pain, heel wound TECHNIQUE: Frontal, lateral oblique views of the right foot Comparisons: None FINDINGS: Soft tissue swelling overlying the heel with the underlying soft tissue ulcer. Bone mineralization is normal. No acute or healed fractures. Joint spaces are well-maintained. IMPRESSION: Soft tissue ulcer at the heel with surrounding swelling. No underlying osseous abnormality is identif ied. Electronically signed by: Nilam Menard MD (10/28/2021 5:54 PM) [facility]
[2021-10-28] MEDS ORDERED: ACETAMINOPHEN 500 MG TABLET PO ONE (18:00)
--- NOTE | 2021-10-28 18:00 | PHYS DOC ---
Past Medical History Past Medical History: CAD, Hypertension, [place], Stroke Past Surgical History: Coronary Bypass Surgery, Splenectomy, Other Additional Past Surgical Histo: left foot; cardiac stents Smoking Status: Current Every Day Smoker Drug Use: None General Adult EDM: Chief Complaint: WOUND CHECK HPI: HPI: Patient is a 71 year old female who presents with wound to her right heel. Patient visited both her primary care doctor as well as her care administrative tech today, the later of whom suggested she present to the ER to have her wound evaluated. Patient rates her pain as mild and states she "sometimes takes tylenol" for it. Patient sustained pressure ulcer from a walking boot that she was instructed to wear following a calcaneal fracture in January 2021. Patient denies foul odor, purulent drainage, fever, chills, weakness. Review of Systems: Review of Systems: ROS negative or noncontributory except as mentioned in HPI. Heart Score: C/O Chest Pain: No Current Medications: Current Medications Medications (Trade) Dose Ordered Sig/Radha Start Time Stop Time Status Last Admin Dose Admin Acetaminophen (Tylenol) 1,000 mg 1X ONCE 10/28/21 18:00 10/28/21 18:01 Allergies: Allergies: Allergies Coded Allergies Type Severity Reaction Last Updated Verified Penicillins Allergy Intermediate 06/23/16 Yes Sulfa (Sulfonamide Antibiotics) Allergy Intermediate 06/23/16 Yes codeine Allergy Intermediate 06/23/16 Yes erythromycin base Allergy Unknown 09/02/16 Yes Physical Exam: PE: Constitutional: Well developed, well nourished, no acute distress, non-toxic appearance. HENT: Normocephalic, atraumatic, bilateral external ears normal, oropharynx moist, no oral exudates, nose normal. Eyes: EOMI, conjunctiva normal, no discharge. Neck: Normal range of motion, supple, no stridor. Skin: See below for pressure ulcer to the right heel. Skin otherwise warm, dry, no erythema, no rash. Extremities: Right heel tenderness surrounding a 3cm pressure ulcer limited to the skin, no cyanosis, no clubbing, ROM intact, no edema, PT pulses 2+ and symmetrical. Neurologic: Alert and oriented x4, normal motor function, normal sensory function, no focal deficits noted. Current Patient Data: Vital Signs: Vital Signs Date Time Temp Pulse Resp B/P (MAP) Pulse Ox O2 Delivery O2 Flow Rate FiO2 10/28/21 17:05 98.3 71 16 178/63 (101) 95 Room Air 98.3 Radiology/Procedures: Radiology/Procedures: PROCEDURE: FOOT RIGHT 3V Exam: Right foot 3 views INDICATION: Pain, heel wound TECHNIQUE: Frontal, lateral oblique views of the right foot Comparisons: None FINDINGS: Soft tissue swelling overlying the heel with the underlying soft tissue ulcer. Bone mineralization is normal. No acute or healed fractures. Joint spaces are well-maintained. IMPRESSION: Soft tissue ulcer at the heel with surrounding swelling. No underlying osseous abnormality is identified. Electronically signed by: Nilam Menard MD (10/28/2021 5:54 PM) [facility] Course & Med Decision Making: Course & Med Decision Making Pertinent Labs and Imaging studies reviewed. (See chart for details) Patient is a 71-year-old female who presents with a pressure ulcer on her right heel. Patient was put in a walking boot in January last year following a calcaneal fracture. Her care administrative tech suggested she present to the emergency department today for evaluation of the wound. Patient states her primary care provider suggested wound care. Plain films did not reveal any bony involvement of the ulceration or any evidence of osteomyelitis. Patient was referred to podiatry for further evaluation and management of this wound. She was started on p.o. Keflex. All of her questions were answered. Return precautions were provided. Patient understands and is agreeable to discharge plan. Dragon Disclaimer: Baltazar Disclaimer: This electronic medical record was generated, in whole or in part, using a voice recognition dictation system. Departure Departure Impression: Primary Impression: Pressure ulcer of right heel, stage 2 Additional Impression: Elevated blood pressure reading Disposition: HOME / SELF CARE / HOMELESS Condition: STABLE Referrals: DOMENICA COURTNEY MD (PCP) GADIEL BARNETT DPM Patient Instructions: Pressure Ulcer-Brief Additional Instructions: [facility] [address] [place], [place] [address] EMERGENCY DEPARTMENT GENERAL DISCHARGE INSTRUCTIONS Thank you for coming to [facility] Emergency Department (ED) today and trusting us with you care. We trust that you had a positive experience in our Emergency Department. If you wish to speak to the department management, you may call the director at . YOUR FOLLOW UP INSTRUCTIONS ARE FOLLOWS: 1. Follow up with your primary care doctor. If you do not have a primary doctor, please ask for a resource list of physicians or clinics that may be able to assist you with follow up care. 2. The emergency provider has interpreted your imaging studies, if any were ordered. The radiology emergency room specialist also reviewed them. If there is a change in the findings, you will be notified in 48 hours when at all possible. 3. If a lab test or culture has been done, your results will be reviewed and you will be notified if you need a change in treatment. 4. Follow instructions verbalized to you and refer to the printouts if needed. ADDITIONAL INSTRUCTIONS AND INFORMATION: 1. Your care today has been supervised by a physician who is specially trained in emergency care. Many problems require more than one evaluation for a complete diagnosis and treatment. We recommend that you schedule your follow up appointment as recommended to ensure complete treatment of you illness or injur y. If you are unable to obtain follow up care and continue to have a problem, or if your condition worsens, we recommend that you return to the ED. 2. We are not able to safely determine your condition over the phone nor are we able to give sound medical advice over the phone. For these safety reasons, if you call for medical advice we will ask you to come to the ED for further evaluation. 3. If you have any questions regarding these discharge instructions please call the ED at . SAFETY INFORMATION: In the interest of safety, wellness, and injury prevention; we encourage you to wear your seat belt, if you smoke; quite smoking, and we encourage family to use a protective helmet for bicycling and other sporting events that present an increased risk for head injury. IF YOUR SYMPTOMS WORSEN OR NEW SYMPTOMS DEVELOP, OR YOU HAVE CONCERNS ABOUT YOUR CONDITION; OR IF YOUR CONDITION WORSENS WHILE YOU ARE WAITING FOR YOUR FOLLOW UP APPOINTMENT; EITHER CONTACT YOUR PRIMARY CARE DOCTOR, THE PHYSICIAN WHOSE NAME AND NUMBER YOU WERE GIVEN, OR RETURN TO THE ED IMMEDIATELY. Scripts Cephalexin (KEFLEX) 500 Mg Capsule 1 CAP PO BID for 10 Days, #20 CAP Prov: ALEXIA EID 10/28/21 ALEXIA EID October 28, 2021 18:00
[2021-10-28] MEDS ORDERED: CEPH500C PO (18:06)
== END 2021-10-28 18:11 | disposition home or self-care (01) ==
LOC: ER 16:35
DX: L89.612 Pressure ulcer of right heel, stage 2 (principal); I10 Essential (primary) hypertension; I25.10 Atherosclerotic heart disease of native coronary artery without angina pectoris; I25.2 Old myocardial infarction; F17.200 Nicotine dependence, unspecified, uncomplicated; Z95.1 Presence of aortocoronary bypass graft; Z95.5 Presence of coronary angioplasty implant and graft; Z88.0 Allergy status to penicillin; Z88.2 Allergy status to sulfonamides; Z88.1 Allergy status to other antibiotic agents; Z88.5 Allergy status to narcotic agent
CPT/HCPCS: 73630; 99284